=== PATIENT | female | born 1980 ===

== ENCOUNTER 2024-11-28 11:19 | Emergency (ER) | payer OTHER ==
[~2024-11-28] VITALS: Ht 165.1 cm; Wt 65.0 kg
[2024-11-28 11:48] VITALS: TEMP 98
[2024-11-28 15:05] VITALS: BP 122/78; PULSE 85; RESP 16; O2SAT 99
== END 2024-11-28 15:06 ==
LOC: EMS 11:19
DX: Z03.821 Encounter for observation for suspected ingested foreign body ruled out (principal)
CPT/HCPCS: 74176; 99284; Z7502